=== PATIENT | male | born 1950 | race Caucasian/White ===

== ENCOUNTER 2016-11-23 21:13 | Emergency (ER) | payer MEDICARE, OTHER ==
[2016-11-23] MEDS ORDERED: ONDANSETRON ODT 4 MG TABLET TL STA (22:06)
[2016-11-23] MEDS ORDERED: KETOROLAC 60 MG/2 ML VIAL IM STA (22:06)
[2016-11-23 22:07] LABS: BILIRUBIN,URINE NEGATIVE (NEGATIVE); PH,URINE 5.5 PH (5.0-7.5)
[2016-11-23] MEDS ORDERED: KETOROLAC 60 MG/2 ML VIAL ONE (22:16)
[2016-11-23] MEDS ORDERED: ONDANSETRON ODT 4 MG TABLET ONE (22:16)
[2016-11-23 22:50] LABS: UA w/ MICROSCOPIC CHARGE YES
[2016-11-23 22:54] LABS: WBC,URINE 0-3 /HPF (0-3)
[2016-11-23 22:55] LABS: UR CULTURE IF IND NOT INDICATED
--- NOTE | 2016-11-23 23:14 | CT Preliminary Report ---
Exam: CT Abdomen/Pelvis W/O IMPRESSION: 1. Mildly obstructing 6 x 5 mm proximal right ureteral stone. 2. Bilateral nephrolithiasis. 3. Diverticulosis. [facility] SITE ID: [id number]
--- NOTE | 2016-11-23 23:16 | CT Report ---
EXAM: CT ABDOMEN AND PELVIS (CT KUB) EXAM DATE: 11/23/2016 10:43 PM. CLINICAL HISTORY: Flank pain, hx of stones. COMPARISONS: None. TECHNIQUE: Routine axial helical CT imaging was performed through the abdomen and pelvis without IV c ontrast. Reconstructions: Coronal and sagittal. In accordance with CT protocol optimization, one or more of the following dose reduction techniques w ere utilized for this exam: automated exposure control, adjustment of mA and/or KV based on patient s ize, or use of iterative reconstructive technique. FINDINGS: Lung Bases: Unremarkable. Right Kidney/Ureter: There is a 6 x 5 mm stone in the proximal right ureter resulting in mild hydrone phrosis and perinephric stranding. Several additional 1-2 mm calyceal stones noted. Left Kidney/Ureter: 2 and 3 mm calyceal stones at the lower pole. No obstructing calculi. Other Solid Organs: Noncontrast images of the solid organs are grossly unremarkable. Gallbladder/Bile Ducts: Unremarkable. Peritoneal Cavity: Diverticulosis, no diverticulitis. No bowel obstruction, free air or fluid collect ions. No evidence of appendicitis. Pelvic Organs: No bladder stones or wall thickening. Noncontrast images of the visualized pelvic orga ns are unremarkable. Vasculature: Unremarkable. Other: None. IMPRESSION: 1. Mildly obstructing 6 x 5 mm proximal right ureteral stone. 2. Bilateral nephrolithiasis. 3. Diverticulosis. [facility] Referring Provider Line: [phone] SITE ID: [id number]
--- NOTE | 2016-11-23 23:36 | ED Physician Documentation ---
PD HPI MALE - Stated complaint Stated Complaint: RT SIDE PX - Chief complaint Chief Complaint: Abd Pain - History obtained from History obtained from: Patient - History of Present Illness Timing - onset: Yesterday Timing - details: Abrupt onset, Waxing and waning Associated symptoms: No: Dysuria, Urinary frequency, Unable to urinate PD HPI MALE CONTRIB FACTORS: Sexually active Similar symptoms before: Work up / diagnostics, Treatment Recently seen: Not recently seen - Additional information Additional information: Patient is a 66 year old male with a history of kidney stones who is presenting to the emergency department for right sided flank pain that radiates to his groin. Patient states that he had a little pain yesterday but it got progressively worse today. Review of Systems Constitutional: denies: Fever, Chills Ears: denies: Ear pain, Drainage/discharge Nose: denies: Congestion Throat: denies: Sore throat Respiratory: denies: Cough, Wheezing GI: reports: Abdominal Pain, Nausea. denies: Vomiting : reports: Hesitancy. denies: Frequency Skin: denies: Rash, Lesions Musculoskeletal: reports: Back pain Neurologic: reports: Reviewed and negative Immunocompromised: denies: Immunocompromised PD PAST MEDICAL HISTORY - Past Medical History Past Medical History: Yes Cardiovascular: High cholesterol Neuro: Seizure disorder, Other GI: Diverticulitis : Kidney stones Psych: Anxiety - Past Surgical History Past Surgical History: Yes - Present Medications Home Medications: Ambulatory Orders Medication Instructions Recorded Confirmed Ondansetron Odt [Zofran] 4 mg TL Q6H PRN #14 tablet 11/23/16 Oxycodone HCl/Acetaminophen 1 - 2 each PO Q6H PRN #10 tablet 11/23/16 [Percocet 5-325 mg Tablet] Tamsulosin [Flomax] 0.4 mg PO DAILY #14 capsule 11/23/16 - Allergies Allergies/Adverse Reactions: Allergies Allergy/AdvReac Type Severity Reaction Status Date / Time No Known Drug Allergies Allergy Verified 11/23/16 21:22 - Social History Does the pt smoke?: No Smoking Status: Never smoker Does the pt drink ETOH?: Yes Does the pt have substance abuse?: No - Immunizations Immunizations are current?: Yes PD ED PE NORMAL - Vitals Vital signs reviewed: Yes - General General: Alert and oriented X 3, Well developed/nourished - HEENT HEENT: Atraumatic, PERRL - Neck Neck: Supple, no meningeal sign - Cardiac Cardiac: No murmur - Respiratory Respiratory: No respiratory distress, Clear bilaterally - Abdomen Abdomen: Soft, Non distended - Derm Derm: Normal color, Warm and dry, No rash - Extremities Extremities: No deformity, No edema - Neuro Neuro: Alert and oriented X 3, No motor deficit, No sensory deficit, Normal speech - Psych Psych: Normal mood, Normal affect PD ED PE EXPANDED - General General: Alert, In Pain - Back Back: CVA TTP right Results - Vitals Vitals: Vital Signs - 24 hr 11/23/16 11/23/16 21:17 23:50 Temperature 36.4 C L Heart Rate 61 50 L Respiratory 17 16 Rate Blood Pressure 148/83 H 135/78 H O2 Saturation 99 95 Oxygen O2 Source Room air - Labs Labs: Laboratory Tests 11/23/16 21:55 Urine Color YELLOW Urine Clarity CLEAR Urine pH 5.5 Ur Specific [place] >=1.030 H Urine Protein TRACE Urine Glucose (UA) NEGATIVE Urine Ketones NEGATIVE Urine Occult Blood LARGE H Urine Nitrite NEGATIVE Urine Bilirubin NEGATIVE Urine Urobilinogen 0.2 (NORMAL) Ur Leukocyte Esterase NEGATIVE Urine RBC 11-25 H Urine WBC 0-3 Ur Squamous Epith Cells NONE SEEN Urine Crystals 11-25 Ca Oxalate Urine Bacteria None Seen Urine Mucus Marked Strands Ur Microscopic Review INDICATED Urine Culture Comments NOT INDICATED - Rads (name of study) ct abdomen and pelvis Radiology: Final report received (right sided stone, mild obstruction, 6mm by 5mm) PD MEDICAL DECISION MAKING - ED course Complexity details: reviewed old records, reviewed results, re-evaluated patient , considered differential, d/w patient ED course: Patient was seen and examined at bedside. Patient was treated with toradol and zofran. urine was collected and patient was sent for imaging. when patient returned the results were reviewed. Patient had no signs of infection but did have a kidney stone. patient felt much better and was comfortable with following up with the urology clinic tomorrow. Departure - Departure Disposition: 01 Home, Self Care Clinical Impression: Kidney stone on right side Condition: Good Instructions: ED Stone Renal W Colic Follow-Up: [facility] [Provider Group] Prescriptions: Tamsulosin [Flomax] 0.4 mg PO DAILY #14 capsule Oxycodone HCl/Acetaminophen [Percocet 5-325 mg Tablet] 1 - 2 each PO Q6H PRN # 10 tablet PRN Reason: pain Ondansetron Odt [Zofran] 4 mg TL Q6H PRN #14 tablet PRN Reason: Nausea / Vomiting Comments: Your symptoms today are being caused by a kidney stone. It is 5 by 6mm and has a better than 50% chance of passing. You should stay well hydrated and call the urology group tomorrow to schedule a follow up appointment. You should take motrin or tylenol for pain and percocet for breakthrough pain. You should take a daily flomax as well. Discharge Date/Time: 11/24/16 00:04
[2016-11-23 23:51] VITALS: BP 135/78
== END 2016-11-24 00:04 | disposition home or self-care (01) ==
LOC: ED 21:13
DX: N20.2 Calculus of kidney with calculus of ureter (principal); Z87.442 Personal history of urinary calculi; E78.00 Pure hypercholesterolemia, unspecified
CPT/HCPCS: 74176; 81001; 96372; 99283; 99284; Q0162; 81003; 87086

== ENCOUNTER 2018-05-31 01:31 | Emergency (ER) | payer MEDICARE, OTHER ==
--- NOTE | 2018-05-31 02:26 | ED Physician Documentation ---
History of Present Illness - Stated complaint Stated Complaint: FLU LIKE SYMPTOMS - Chief complaint Chief Complaint: General - History obtained from History obtained from: Patient - History of Present Illness Timing: How many days ago (2) Improved by: no ameliorating factors Worsened by: coughing - Additonal information Additional information: c/o 2 days of subjective fever (feels as though he has fevers but has not measured temperature at home, chills and sweats, dry cough, generalized headache, generalized myalgias/body aches Review of Systems Constitutional: reports: Chills, Myalgias, Fatigue, Sweats, Other (subjective fever (did not take temperature at home)) Ears: denies: Ear pain Throat: denies: Sore throat Cardiac: reports: Reviewed and negative Respiratory: reports: Cough. denies: Dyspnea, Hemoptysis, Wheezing GI: reports: Reviewed and negative : denies: Dysuria, Frequency Skin: denies: Rash Musculoskeletal: denies: Neck pain, Back pain Neurologic: reports: Headache. denies: Focal weakness, Numbness PD PAST MEDICAL HISTORY - Past Medical History Cardiovascular: High cholesterol GI: Diverticulitis : Kidney stones Psych: Anxiety - Past Surgical History Past Surgical History: Yes - Present Medications Home Medications: Ambulatory Orders Medication Instructions Recorded Confirmed Ondansetron Odt [Zofran] 4 mg TL Q6H PRN #14 tablet 11/23/16 Oxycodone HCl/Acetaminophen 1 - 2 each PO Q6H PRN #10 tablet 11/23/16 [Percocet 5-325 mg Tablet] Tamsulosin [Flomax] 0.4 mg PO DAILY #14 capsule 11/23/16 Hydrocodone/Acetaminophen 1 - 2 each PO Q6H PRN #14 tablet 05/31/18 [Hydrocodon-Acetaminophen 5-325] Ibuprofen 800 mg PO Q8HR PRN #20 tablet 05/31/18 Oseltamivir [Tamiflu] 75 mg PO BID #9 capsule 05/31/18 - Allergies Allergies/Adverse Reactions: Allergies Allergy/AdvReac Type Severity Reaction Status Date / Time No Known Drug Allergies Allergy Verified 11/23/16 21:22 - Social History Does the pt smoke?: No Smoking Status: Never smoker Does the pt drink ETOH?: Yes Does the pt have substance abuse?: No - Immunizations Immunizations are current?: Yes PD ED PE NORMAL - Vitals Vital signs reviewed: Yes - General General: Alert and oriented X 3, No acute distress, Well developed/nourished - HEENT HEENT: Moist mucous membranes, Pharynx benign - Neck Neck: Supple, no meningeal sign - Cardiac Cardiac: RRR, No murmur - Respiratory Respiratory: No respiratory distress, Clear bilaterally - Abdomen Abdomen: Soft, Non tender Results - Vitals Vitals: Vital Signs - 24 hr 05/31/18 05/31/18 01:38 03:13 Temperature 37.4 C 38.6 C H Heart Rate 90 81 Respiratory 18 18 Rate Blood Pressure 115/97 H 121/80 O2 Saturation 97 96 Oxygen O2 Source Room air - Labs Labs: Laboratory Tests 05/31/18 01:50 Influenza A (Rapid) Negative Influenza B (Rapid) Negative PD MEDICAL DECISION MAKING - ED course Complexity details: reviewed results, re-evaluated patient, considered differential, d/w patient ED course: HPI s/o influenza. His influenza swab yields (-) result. Given considerable false negative rate of this test, and risk factors for complications of influenza per CDC (age over 65, seizure d/o), and in light of strong suspicion for influenza, will treat with Tamiflu Departure - Departure Disposition: 01 Home, Self Care Clinical Impression: Viral syndrome Condition: Good Instructions: ED Viral Syndrome Follow-Up: Yovany Mcwilliams DO [Primary Care Provider] - Prescriptions: Ibuprofen 800 mg PO Q8HR PRN #20 tablet PRN Reason: Pain Hydrocodone/Acetaminophen [Hydrocodon-Acetaminophen 5-325] 1 - 2 each PO Q6H PRN #14 tablet PRN Reason: pain Oseltamivir [Tamiflu] 75 mg PO BID #9 capsule Discharge Date/Time: 05/31/18 03:23
[2018-05-31] MEDS ORDERED: HYDROcod/ACETAM 5/325 MG TABLET PO STA (03:04)
[2018-05-31] MEDS ORDERED: OSELTAMIVIR 75 MG CAPSULE PO STA (03:04)
[2018-05-31 03:14] VITALS: BP 121/80
[2018-05-31] MEDS ORDERED: IBUPROFEN 600 MG TABLET PO STA (03:16)
== END 2018-05-31 03:23 | disposition home or self-care (01) ==
LOC: ED 01:31
DX: B34.9 Viral infection, unspecified (principal); E78.00 Pure hypercholesterolemia, unspecified
CPT/HCPCS: 87275; 87276; 99283; A9270

== ENCOUNTER 2018-06-27 12:48 | Outpatient (CLI) | payer OTHER ==
[2018-06-27] MEDS ORDERED: GADOBUTROL 10 MMOL/10 ML VIAL ONE (14:40)
[2018-06-27] MEDS ORDERED: GADOBUTROL 10 MMOL/10 ML VIAL IVP ONE (14:47)
--- NOTE | 2018-06-27 15:52 | MRI Report ---
Reason: MENINGIOMA RESECTION 1994- Procedure Date: 06/27/2018 Accession Number: [id number] / [id number] Procedure: MRI - Brain W/WO CPT Code: FULL RESULT: EXAM: MRI BRAIN WITHOUT AND WITH CONTRAST EXAM DATE: 06/27/2018 02:53 PM. CLINICAL HISTORY: 68-year-old with history of meningioma postresection. Evaluate for interval change. COMPARISON: MR brain 08/11/2015. TECHNIQUE: Multiplanar, multisequence T1-weighted and fluid-sensitive MR sequences of the brain were performed. Sequences optimized for routine evaluation. Other: None. IV Contrast: 9.5 cc Gadavist. FINDINGS: Brain Volume: Normal for age. Parenchyma: Postsurgical changes of left parieto-occipital craniotomy. There is a resection cavity seen within the medial left occipital lobe that appears similar to prior study. There is surrounding gliosis and encephalomalacia that appears similar to prior study. There are mild bilateral areas of T2/FLAIR signal hyperintensity seen that appear similar to prior study. There are no areas of restricted diffusion seen to suggest acute infarct. There are no definite abnormal areas of susceptibility artifact seen. No abnormal enhancement. Ventricles/Cisterns: Postsurgical changes of left parieto-occipital craniotomy. There is slight dural thickening and enhancement seen that is likely postsurgical and similar to prior study. There are extra-axial, dural-based, avidly enhancing lesions seen along the posterior left falx measuring 12 x 7 x 13 mm (CC by TR by AP) and 12 x 4 x 13 mm (CC by TR by AP) similar to prior study. There is no definite new abnormal extra-axial fluid collection/mass seen. Cisterns appear patent. Ventricles appear age appropriate. No definite new abnormal postcontrast enhancement. Orbits: Symmetric and unremarkable. Sella [place]: The pituitary gland, cavernous sinuses, suprasellar cistern and optic chiasm are unremarkable. IAC: Symmetric and unremarkable. Vasculature: Normal signal flow void is seen in the major arterial structures at the skull base. The dural sinuses are patent and enhance normally. Sinuses: Tiny to small right maxillary mucosal retention cysts versus polyps with minimal mucosal thickening of the right maxillary sinus and ethmoid air cells. Mastoid air cells and middle ear cavities appear clear. Bones: Postsurgical changes of left parieto-occipital craniotomy. Other: None. IMPRESSION: 1. Postsurgical changes of left parieto-occipital craniotomy that appear similar to MR brain 08/11/2015. 2. Again demonstrated are extra-axial, dural-based, avidly enhancing lesions along the posterior left falx that appear similar to MR brain 08/11/2015, similar to prior study. Findings likely represent residual meningiomas. 3. No acute infarct, acute intracranial hemorrhage, new mass, hydrocephalus, or midline shift. No new abnormal post contrast enhancement. 4. There is a resection cavity seen within the medial left occipital lobe with surrounding encephalomalacia and gliosis that appears similar to prior study and is likely postsurgical. 5. Additional mild white matter changes that appear similar to MR brain 08/11/2015 and while nonspecific, may represent sequela of chronic small vessel ischemic disease. [facility]
== END 2018-06-27 12:49 | disposition home or self-care (01) ==
LOC: DI 12:48
PROVIDERS: ATTEND Emergency Medicine Emergency Medical Services
DX: Z09 Encounter for follow-up examination after completed treatment for conditions other than malignant neoplasm (principal); G93.9 Disorder of brain, unspecified; G93.89 Other specified disorders of brain
CPT/HCPCS: 70553; A9585

== ENCOUNTER 2018-12-18 16:26 | Outpatient (CLI) | payer OTHER, MEDICARE | END 2018-12-18 16:27 | disposition short-term general hospital (02) | LOC: EMS 16:26 | PROVIDERS: ATTEND Surgery | DX: R55 Syncope and collapse (principal) | CPT/HCPCS: A0425; A0427 ==

== ENCOUNTER 2019-06-11 10:10 | Outpatient (CLI) | payer OTHER | END 2019-06-11 10:11 | disposition home or self-care (01) | LOC: DI 10:10 | PROVIDERS: ATTEND Nurse Practitioner Family | DX: I26.92 Saddle embolus of pulmonary artery without acute cor pulmonale (principal); I07.1 Rheumatic tricuspid insufficiency | CPT/HCPCS: 93306 ==

== ENCOUNTER 2020-11-27 09:45 | Outpatient (CLI) | payer OTHER ==
--- NOTE | 2020-11-27 13:24 | Ultrasound Report ---
PROCEDURE: Aorta Screening INDICATIONS: AAA SCREENING TECHNIQUE: Real time scanning was performed of the aorta and iliac arteries, with image documentatio n. COMPARISON: 11/23/2016 FINDINGS: Aorta: Proximal aortic diameter measures 2.7 x 2.6 cm. Mid-aorta measures 2.3 x 2.3 cm. Distal aor tic diameter is 2.2 x 2.0 cm. Iliac arteries: Right common iliac artery measures 1.7 x 1.5 cm. Left common iliac artery measures 1.7 x 1.4 cm. IMPRESSION: Normal abdominal aorta without evidence of aneurysm. Reviewed by: Mckay Salinas on 11/27/2020 1:23 PM PDT Approved by: Mckay Salinas on 11/27/2020 1:23 PM PDT Station ID: [id number]
== END 2020-11-27 09:46 | disposition home or self-care (01) ==
LOC: DI 09:45
PROVIDERS: ATTEND Nurse Practitioner Family
DX: Z13.6 Encounter for screening for cardiovascular disorders (principal)